=== PATIENT | male | born 1970 | race Caucasian/White ===

== ENCOUNTER 2024-04-19 10:19 | Emergency (ER) | payer OTHER, SELFPAY ==
[2024-04-19 10:22] VITALS: BP 202/111
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
[2024-04-19 11:24] VITALS: BMI 29.5
[2024-04-19 12:49] VITALS: BP 184/93
== END 2024-04-19 12:54 | disposition home or self-care (01) ==
LOC: EMR 10:19
PROVIDERS: EMERGENCY PHYSICIAN Emergency Medicine; FAMILY PHYSICIAN Family Medicine
DX: S00.81XA Abrasion of other part of head, initial encounter (principal); S22.42XA Multiple fractures of ribs, left side, initial encounter for closed fracture; Y04.0XXA Assault by unarmed brawl or fight, initial encounter; R03.0 Elevated blood-pressure reading, without diagnosis of hypertension
CPT/HCPCS: 99283; 71101; 73030